=== PATIENT | female | born 1995 | race Caucasian/White ===

== ENCOUNTER 2024-10-28 17:12 | Emergency (ER) | payer BC ==
[~2024-10-28] VITALS: Ht 175.3 cm; Wt 72.0 kg
[2024-10-28 17:59] VITALS: O2SAT 100
[2024-10-28 18:25] LABS: BASOPHILS % 0.4 % (0.0-2.0); EOSINOPHILS % 0.4 % (0.0-5.0); HEMATOCRIT. 42.7 % (36.0-48.0); HEMOGLOBIN. 14.9 g/dL (12.0-16.0); LYMPHOCYTES % 18.5 % (20.0-50.0); MEAN CORPUSCULAR HEMOGLOBIN 31.6 pg (28.0-32.0); MEAN CORPUSCULAR HGB CONC 34.8 g/dL (31.0-37.0); MEAN CORPUSCULAR VOLUME 90.9 fL (81.0-99.0); MEAN PLATELET VOLUME 9.1 fl (7.4-10.4); MONOCYTES % 4.2 % (2.0-8.0); NEUTROPHILS % 76.5 % (40.0-76.0); PLATELET 243 x1000/uL (130-400); RED CELL DISTRIBUTION WIDTH 12.3 % (11.6-14.6); WHITE BLOOD COUNT 11.5 x1000/uL (4.5-11.0)
[2024-10-28 18:37] LABS: CHLORIDE 103 mEq/L (98-107); POTASSIUM 3.6 mEq/L (3.5-5.1); SODIUM 136 mEq/L (136-145)
[2024-10-28 18:39] LABS: CALCIUM 9.7 mg/dL (8.7-10.4); CARBON DIOXIDE 23 mEq/L (21-32)
[2024-10-28 18:44] LABS: CREATININE 0.7 mg/dL (0.6-1.0); GLUCOSE 113 mg/dL (70-105); UREA NITROGEN BLOOD < 5 mg/dL (9-23)
[2024-10-28 18:46] LABS: ALANINE AMINOTRANSFERASE 15 IU/L (10-49); ALBUMIN 4.8 g/dL (3.2-4.8); ASPARTATE AMINOTRANSFERASE 20 IU/L (<34); BILIRUBIN DIRECT 0.2 mg/dL (<=3.0); BILIRUBIN TOTAL 0.5 mg/dL (0.1-1.0); PROTEIN TOTAL 7.9 g/dL (6.0-8.3)
[2024-10-28 18:53] LABS: HCG SCREEN NEGATIVE
[2024-10-28 18:53] LABS: COLOR URINE YELLOW (YELLOW); GLUCOSE URINE NEGATIVE (NEGATIVE); KETONES URINE 1+ (NEGATIVE); LEUKOCYTE ESTERASE URINE 1+ (NEGATIVE); NITRITE URINE NEGATIVE (NEGATIVE); OCCULT BLOOD URINE NEGATIVE (NEGATIVE); PH URINE 8.5 (4.5-8.0); PROTEIN URINE NEGATIVE (NEGATIVE); SPECIFIC GRAVITY URINE 1.018 (1.005-1.030); UROBILINOGEN URINE 0.2 E.U./dL (0.2-1.0)
[2024-10-28 19:07] LABS: INR 0.9; PROTHROMBIN TIME 9.9 sec (9.6-11.0)
[2024-10-28] MEDS: MAGNESIUM/ALUMINUM HYDROXIDE/SIMETHICONE 30ML UDC PO NR (19:18)
[2024-10-28] MEDS: FAMOTIDINE 20MG TABLET PO NR (19:18)
[2024-10-28 19:48] LABS: CLARITY URINE SL HAZY (CLEAR)
[2024-10-28 19:50] LABS: RBC URINE NONE SEEN /hpf (0-2); SQUAMOUS EPITHELIAL CELL URINE FEW /lpf (RARE/1+); WBC URINE 0-2 /hpf (0-2)
[2024-10-28 19:51] LABS: BACTERIA URINE 2+
[2024-10-28] MEDS ORDERED: SULF1TAB48 MT (20:33)
[2024-10-28 20:45] VITALS: BP 122/75; PULSE 76; RESP 18; TEMP 37; O2SAT 100
[2024-10-28] MEDS: ONDANSETRON 4MG ODT PO ONE (20:48)
== END 2024-10-28 20:47 | disposition home or self-care (01) ==
LOC: ER 17:12
DX: N39.0 Urinary tract infection, site not specified (principal); R11.2 Nausea with vomiting, unspecified; R19.7 Diarrhea, unspecified
CPT/HCPCS: 36415; 74176; 80048; 80076; 81003; 81025; 84703; 85025; 93005; 99284